=== PATIENT | female | born 1955 | race African-American/Black ===

== ENCOUNTER 2016-05-19 10:00 | Emergency (ER) | payer OTHER ==
[2016-05-19 10:09] VITALS: BP 150/100; PULSE 94; TEMP 98.1; BMI 40.2
--- NOTE | 2016-05-19 10:49 | PDOC ---
History of Present Illness - General Chief Complaint: Injury Stated Complaint: FALL, RT KNEE PAIN Time Seen by Provider: 05/19/16 10:39 History Source: Patient Exam Limitations: No Limitations - History of Present Illness Initial Comments: 05/19/16 10:41 60 year old female with medical history of hypertension and surgical history of cholecystectomy, tubal ligtion and left knee laproscopy surgery, presents after slip and fall this am while in kitchen. Complaining of pain and swelling in right knee especially with weight bearing. Took ibuprofen 800mg po 05/19/16 10:49 Occurred: reports: this morning Severity: reports: moderate Pain Location: reports: lower extremity Method of Injury: Yes: fall Modifying Factors: improves with: immobilization, pain medication Loss of Consciousness: no loss of consciousness Associated Symptoms (Fall): denies symptoms Past History - Travel Traveled outside of the country in the last 30 days: No Close contact w/someone who was outside of country & ill: No - Past Medical History Allergies/Adverse Reactions: Allergies Allergy/AdvReac Type Severity Reaction Status Date / Time meperidine HCl [From Demerol] AdvReac Severe Vomiting Verified 05/19/16 10:05 lactose-intolerance AdvReac Uncoded 05/19/16 10:05 Home Medications: Ambulatory Orders Amlodipine Besylate [Norvasc -] 10 mg PO DAILY 09/16/13 Hydrochlorothiazide [Hctz -] 50 mg PO DAILY 09/16/13 Lisinopril [Prinivil -] 40 mg PO DAILY 09/16/13 Aspirin [ASA -] 81 mg PO DAILY 01/27/14 Ibuprofen 600 mg PO QID #30 tablet 05/19/16 Anemia: No Asthma: No Cancer: No Cardiac Disorders: No CVA: No COPD: No CHF: No Dementia: No Diabetes: No GI Disorders: Yes (STENT PLACED PRIOR TO GALL BLADDER REMOVAL) Disorders: No HTN: Yes Hypercholesterolemia: No Liver Disease: No Suicide Attempt (Hx): No Seizures: No Thyroid Disease: No - Surgical History Abdominal Surgery: No Appendectomy: No Cardiac Surgery: No Cholecystectomy: Yes Lung Surgery: No Neurologic Surgery: No Orthopedic Surgery: Yes (LT KNEE ARTHROSCOPY) - Psycho/Social/Smoking Cessation Hx Anxiety: No Suicidal Ideation: No Smoking History: Never smoked Have you smoked in the past 12 months: No If you are a former smoker, when did you quit?: 1994 Information on smoking cessation initiated: No Hx Alcohol Use: No Drug/Substance Use Hx: No Substance Use Type: None Hx Substance Use Treatment: No Trauma Specific PMHX - Complaint Specific PMHX Arthritis: No Back Injury: No Neck Injury: No Hx Sacro Iliac Joint Dysfunction: No Review of Systems - Review of Systems Able to Perform ROS?: Yes Is the patient limited Danish proficient: No Constitutional: No: Chills, Fever, Loss of Appetite, Malaise, Weight Stable HEENTM: No: Ocular Prothesis Respiratory: No: Cough, Shortness of Breath, Productive cough Cardiac (ROS): No: Chest Pain, Lightheadedness, Palpitations ABD/GI: No: Blood Streaked Bowels, Poor Appetite, Poor Fluid Intake, Indigestion , Abdominal cramping Musculoskeletal: Yes: Joint Pain, Joint Swelling. No: Back Pain, Muscle Weakness, Neck Pain Integumentary: No: Erythema Neurological: No: Numbness, Paresthesia, Tremors, Weakness, Dizziness Psychiatric: No: Mood Swings Endocrine: No: See HPI, Increased Urine, Change in Weight Hematologic/Lymphatic: No: Blood Clots *Physical Exam - Vital Signs Last Vital Signs Temp Pulse Resp BP Pulse Ox 98.1 F 94 H 18 150/100 100 05/19/16 10:06 05/19/16 10:06 05/19/16 10:06 05/19/16 10:06 05/19/16 10:06 - Physical Exam General Appearance: Yes: Nourished, Appropriately Dressed. No: Apparent Distress HEENT: positive: EOMI, SUSANNE, Normal ENT Inspection, TMs Normal, Pharynx Normal. negative: Sinus Tenderness Neck: positive: Supple. negative: Lymphadenopathy (R), Lymphadenopathy (L) Respiratory/Chest: positive: Lungs Clear, Normal Breath Sounds. negative: Respiratory Distress, Accessory Muscle Use Cardiovascular: positive: Regular Rhythm, Regular Rate, S1, S2 Extremity: positive: Normal Capillary Refill, Swelling, Other (right knee with swelling, warmth, mild tenderness suprapatella) Neurologic: positive: shirt folder II-XII NML intact, Fully Oriented, Alert, Normal Mood/ Affect, Normal Response, Motor Strength 5/5 Medical Decision Making - Medical Decision Making 05/19/16 10:54 60 year old female with injury to right knee xray 05/19/16 11:28 xray of left knee with no fracture carmela wrap applied rx: ibuprofen *DC/Admit/Observation/Transfer Diagnosis at time of Disposition: Right knee injury Qualifiers: Encounter type: initial encounter Qualified Code(s): S89.91XA - Unspecified injury of right lower leg, initial encounter - Discharge Dispostion Disposition: HOME Condition at time of disposition: Good Admit: No - Prescriptions Prescriptions: Ibuprofen 600 mg PO QID #30 tablet - Referrals Referrals: Israel Lozada MD [Staff Physician] - - Patient Instructions Printed Discharge Instructions: Knee Sprain, DI for Knee Pain Additional Instructions: Please elevate leg at rest. Apply ice compress for 20 minutes on 30 minutes off for 2 more days. Activity as tolerated. Call orthopedic for follow up and return for worsening symptoms - Post Discharge Activity Work/School Note: Back to Work
== END 2016-05-19 11:33 | disposition home or self-care (01) ==
LOC: JERFT 10:00
DX: S83.8X1A Sprain of other specified parts of right knee, initial encounter (principal); W01.0XXA Fall on same level from slipping, tripping and stumbling without subsequent striking against object, initial encounter; Y93.89 Activity, other specified; Y92.030 Kitchen in apartment as the place of occurrence of the external cause
CPT/HCPCS: 73564-TC-RT; 99281-25